=== PATIENT | male | born 2005 | race Caucasian/White ===

== ENCOUNTER 2023-11-15 18:57 | Emergency (ER) | payer SELFPAY ==
[2023-11-15] MEDS ORDERED: Diphtheria,Pertussis(Acell),Tetanus Vaccine 0.5 ML Syringe IM ONE (19:37)
[2023-11-15] MEDS: Lidocaine 1% 10 ML MDV ONE ×2 (20:04)
[2023-11-15] MEDS ORDERED: Lidocaine 1% 50 ML MDV INJECT STA (20:04)
== END 2023-11-15 20:10 | disposition home or self-care (01) ==
LOC: JD.ED 18:57
DX: S01.81XA Laceration without foreign body of other part of head, initial encounter (principal); W22.8XXA Striking against or struck by other objects, initial encounter
CPT/HCPCS: 12011; 90471; 90715; 99282; J2001; J3490